=== PATIENT | male | born 1990 | race Caucasian/White ===

== ENCOUNTER 2017-04-03 18:47 | Emergency (ER) | payer MEDICAID ==
[~2017-04-03] VITALS: Ht 175.3 cm; Wt 80.0 kg
[2017-04-03 20:03] VITALS: BP 117/65
== END 2017-04-04 01:00 | disposition left against medical advice (07) ==
LOC: ER 18:48
DX: Z53.21 Procedure and treatment not carried out due to patient leaving prior to being seen by health care provider (principal)